=== PATIENT | female | born 2005 | race Two or more races ===

== ENCOUNTER 2024-05-30 02:01 | Emergency (ER) | payer OTHER ==
[~2024-05-30] VITALS: Ht 157.5 cm; Wt 87.3 kg
[2024-05-30 02:07] VITALS: TEMP 98.4
[2024-05-30 02:35] VITALS: BP 123/68; PULSE 102; RESP 18
[2024-05-30] MEDS ORDERED: MethylPREDNISolone SOD SUCC 125 MG/2 ML VIAL ONE (02:58)
[2024-05-30 03:12] LABS: APPEARANCE,URINE CLEAR (CLEAR); BILIRUBIN,URINE NEGATIVE (NEGATIVE); COLOR,URINE LIGHT YELLOW (YELLOW); GLUCOSE, URINE (UA) NEGATIVE (NEGATIVE); KETONES,URINE NEGATIVE (NEGATIVE); LEUKOCYTE ESTERASE ,URINE NEGATIVE (NEGATIVE); NITRATE,URINE NEGATIVE (NEGATIVE); OCCULT BLOOD,URINE NEGATIVE (NEGATIVE); PROTEIN,URINE NEGATIVE (NEGATIVE); SPECIFIC GRAVITIY, URINE 1.008 (1.003-1.030); UROBILINOGEN,URINE <=1.0 mg/dL (<=1.0)
[2024-05-30 03:16] LABS: BACTERIA,URINE None Seen /HPF (None Seen); RBC,URINE None Seen /HPF (0-2); SQUAMOUS EPITHELIAL CELL,UR Few /LPF (None Seen); WBC,URINE None Seen /HPF (0-5)
[2024-05-30] MEDS: IBUPROFEN 600 MG TABLET PO ONE (04:30)
[2024-05-30] MEDS ORDERED: IBUP-1492 PO (05:09)
== END 2024-05-30 06:06 | disposition home or self-care (01) ==
LOC: EMS 02:01
DX: S13.4XXA Sprain of ligaments of cervical spine, initial encounter (principal); S09.90XA Unspecified injury of head, initial encounter; V49.88XA Car occupant (driver) (passenger) injured in other specified transport accidents, initial encounter; Y93.89 Activity, other specified; Y92.89 Other specified places as the place of occurrence of the external cause; Y99.8 Other external cause status
CPT/HCPCS: 99284; 70450; 71045; 81001; 84703; 72125; J2919